=== PATIENT | female | born 1990 | race Caucasian/White ===

== ENCOUNTER 2017-09-30 20:16 | Emergency (ER) | payer BC ==
[2017-09-30] MEDS ORDERED: Acetaminophen/HYDROcodone 325-10 MG Tab ONE (20:45)
[2017-09-30] MEDS ORDERED: Ondansetron 4 MG Tab.DIS ONE (20:45)
[2017-09-30] MEDS ORDERED: Acetaminophen/HYDROcodone 325-5 MG Tab ONE (21:00)
[2017-09-30] MEDS ORDERED: Silver Sulfadiazine 1% Crm 50 GM Tube TOP ONE (21:00)
[2017-09-30] MEDS ORDERED: Diphtheria/Tetanus Toxoids,Adult (Td) 0.5 ML SDV IM ONE (21:10)
[2017-09-30] MEDS ORDERED: Ketorolac 60 MG/2 ML SDV ONE (21:13)
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
== END 2017-09-30 21:42 | disposition home or self-care (01) ==
LOC: LB.ED 20:16
DX: T23.252A Burn of second degree of left palm, initial encounter (principal); Z23 Encounter for immunization; X15.0XXA Contact with hot stove (kitchen), initial encounter; Y92.099 Unspecified place in other non-institutional residence as the place of occurrence of the external cause
CPT/HCPCS: 16020; 90471; 90714; 99283; A9270; J1885